=== PATIENT | male | born 1940 | race Caucasian/White ===

== ENCOUNTER 2017-02-23 10:08 | Emergency (ER) | payer MEDICARE, OTHER ==
[~2017-02-23] VITALS: Ht 193 cm; Wt 77.1 kg
--- OUTSIDE RECORDS SUMMARY | 2017-02-23 10:13 | XMS REPORT | Continuity Of Care Document ---
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2 % June 13, 2016 11:54am MEAN CORPUSCULAR VOLUME(82.0-100.0 FL) 88.2 FL June 13, 2016 11:54am MEAN CORPUSCULAR HEMOGLOBIN(26.0-34.0 PG) 29.5 PG June 13, 2016 11:54am MEAN CORPUSCULAR HGB CONC(31.5-36.5 G/DL) 33.5 G/DL June 13, 2016 11:54am RED CELL DISTRIBUTION WIDTH(11.5-14.5 %) 13.7 % June 13, 2016 11:54am 777-3: PLATELET COUNT(150-450 10E3/UL) 202 10E3/UL June 13, 2016 11:54am MEAN PLATELET VOLUME(8.2-12.4 FL) 9.8 FL June 13, 2016 11:54am NEUTROPHILS % (AUTO)(40-70 %) 59 % June 13, 2016 11:54am LYMPHOCYTES % (AUTO)(15-45 %) 30 % June 13, 2016 11:54am MONOCYTES % (AUTO)(2-10 %) 8 % June 13, 2016 11:54am EOSINOPHILS % (AUTO)(0-6 %) 2 % June 13, 2016 11:54am BASOPHILS % (AUTO)(0-1 %) 1 % June 13, 2016 11:54am IMMATURE GRANS % (AUTO)(0-0 %) 0 % June 13, 2016 11:54am NUCLEATED RBCS (AUTO)(0-0 %) 0 % June 13, 2016 11:54am NEUTROPHILS # (AUTO)(2.5-7.5 10E3/UL) 4.0 10E3/UL June 13, 2016 11:54am LYMPHOCYTES # (AUTO)(1.0-4.0 10E3/UL) 2.0 10E3/UL June 13, 2016 11:54am MONOCYTES # (AUTO)(0.2-0.8 10E3/UL) 0.5 10E3/UL June 13, 2016 11:54am EOSINOPHILS # (AUTO)(0.0-0.4 10E3/UL) 0.1 10E3/UL June 13, 2016 11:54am BASOPHILS # (AUTO)(0.0-0.2 10E3/UL) 0.1 10E3/UL June 13, 2016 11:54am IMMATURE GRANS # (AUTO)(0.0-0.0 10E3/UL) 0.0 10E3/UL June 13, 2016 11:54am DIFF TYPE AUTOMATED June 13, 2016 11:54am UA WITH SCREEN FOR CULTURE COLOR,URINE YELLOW June 13, 2016 1:28pm CLARITY,URINE CLEAR June 13, 2016 1:28pm GLUCOSE, URINE(NEGATIVE MG/DL) 500 MG/DL June 13, 2016 1:28pm URINE BILIRUBIN(NEGATIVE) NEGATIVE June 13, 2016 1:28pm KETONES,URINE(NEGATIVE MG/DL) NEGATIVE MG/DL June 13, 2016 1:28pm URINE SPECIFIC GRAVITY(1.001-1.035) 1.022 June 13, 2016 1:28pm URINE BLOOD(NEGATIVE) NEGATIVE June 13, 2016 1:28pm URINE PH(5.0-9.0) 5.5 June 13, 2016 1:28pm URINE PROTEIN(Less than 20 MG/DL) TRACE MG/DL June 13, 2016 1:28pm URINE UROBILINOGEN(0.2-1.0 MG/DL) 0.2-1.0 MG/DL June 13, 2016 1:28pm URINE NITRITE(NEGATIVE) NEGATIVE June 13, 2016 1:28pm LEUKOCYTE ESTERASE ,URINE(NEGATIVE) NEGATIVE June 13, 2016 1:28pm URINE RBCS(0-3 /HPF) 0-3 /HPF June 13, 2016 1:28pm URINE WBCS(0-3 /HPF) 0-3 /HPF June 13, 2016 1:28pm URINE EPITHELIAL CELLS(0-3 /HPF) 0-3 /HPF June 13, 2016 1:28pm URINE HYALINE CASTS(0-3 /LPF) 0-3 /LPF June 13, 2016 1:28pm URINE BACTERIA(NEGATIVE /HPF) NEGATIVE /HPF June 13, 2016 1:28pm URINE CULTURE NOT INDICATED June 13, 2016 1:28pm URINE MICROSCOPIC REQUIRED YES June 13, 2016 1:28pm COMPLETE METABOLIC PROFILE GLUCOSE(70-110 MG/DL) 240 MG/DL June 13, 2016 11:54am BLOOD UREA NITROGEN(6-20 MG/DL) 16 MG/DL June 13, 2016 11:54am CREATININE(0.50-1.20 MG/DL) 0.79 MG/DL June 13, 2016 11:54am EST GLOMERULAR FILTRATION RATE(Greater than or equal to 60) Greater than or equal to 60 Result Comments: If the patient is of -[place] descent/extraction multiply the eGFR value by 1.212 to obtain the actual eGFR. >=60 mg/dL Normal 30-59 mg/dL Moderate Kidney Disease 15-29 mg/dL Severe Kidney Disease <15 mg/dL Kidney Failure June 13, 2016 11:54am BUN CREATININE RATIO(10.0-20.0 RATIO) 20.0 RATIO June 13, 2016 11:54am SODIUM(135-145 MMOL/L) 137 MMOL/L June 13, 2016 11:54am POTASSIUM(3.6-5.0 MMOL/L) 4.2 MMOL/L June 13, 2016 11:54am CHLORIDE(101-111 MMOL/L) 103 MMOL/L June 13, 2016 11:54am CO2(21-31 MMOL/L) 25 MMOL/L June 13, 2016 11:54am ANION GAP(8-18) 13 June 13, 2016 11:54am OSMO CALCULATED(270.0-290.0) 282.9 June 13, 2016 11:54am CALCIUM(8.5-10.5 MG/DL) 9.4 MG/DL June 13, 2016 11:54am BILIRUBIN,TOTAL(0.1-1.2 MG/DL) 1.1 MG/DL June 13, 2016 11:54am ALKALINE PHOSPHATASE(42-121 IU/L) 50 IU/L June 13, 2016 11:54am ASPARTATE AMINO TRANSFERASE(10-42 IU/L) 20 IU/L June 13, 2016 11:54am ALANINE AMINOTRANSFERASE(10-60 IU/L) 19 IU/L June 13, 2016 11:54am TOTAL PROTEIN(6.4-8.2 G/DL) 6.8 G/DL June 13, 2016 11:54am ALBUMIN(3.5-5.5 G/DL) 4.3 G/DL June 13, 2016 11:54am GLOBULIN(2.4-3.6) 2.5 June 13, 2016 11:54am ALBUMIN/GLOBULIN RATIO(0.9-1.8 RATIO) 1.7 RATIO June 13, 2016 11:54am CARDIAC TROPONIN I CARDIAC TROPONIN I(0.01-0.04 NG/ML) Less than 0.01 NG/ML Result Comments: REFERENCE RANGES: NEGATIVE < 0.04 NG/ML POSSIBLE MYCARDIAL INVOLVEMENT >/=0.04 NG/ML INTERPRET TROPONIN I RESULT IN LIGHT OF THE TOTAL CLINICAL PRESENTATION INCLUDING CLINICAL HISTORY. ANY CONDITION RESULTING IN MYOCARDIAL INJURY CAN POTENTIALLY ELEVATE TROPONIN I LEVELS ABOVE EXPECTED NORMAL RANGES. NOTE NEW REFERENCE RANGE June 13, 2016 11:54am Allergies and Adverse Reactions Allergies and Adverse Reactions Patient Unit Number: [id number] Agent Type Reaction Severity Status NO KNOWN DRUG ALLERGIES Drug Allergy Unknown Unknown Active Problem List Problem List Visit/Account #[id number] (June 13, 2016 11:50am - June 13, 2016 2:35pm) Active Problems: Code/Condition Comments Documented Start Date Documented Resolved Date Code (s) G30.9 ALZHEIMER'S DISEASE, UNSPECIFIED June 13, 2016 F02.80 DEMENTIA IN OTH DISEASES CLASSD ELSWHR W/O BEHAVRL DISTURB June 13, 2016 F51.04 PSYCHOPHYSIOLOGIC INSOMNIA June 13, 2016 R42 DIZZINESS AND GIDDINESS June 13, 2016 Plan of Care Plan Of Care Visit/Account #[id number] (June 13, 2016 11:50am - June 13, 2016 2:35pm) Patient Instructions Take the meclizine as needed for dizziness. Take the Remeron as directed at night to help with sleep. Otherwise continue current medications as prescribed. Push fluids and stay hydrated. Followup with Dr. Menard later this week for recheck and further recommendations. ER as needed. Vital Signs Vital Signs Visit/Account #[id number] (June 13, 2016 11:50am - June 13, 2016 2:35pm) Sign First Result Last Result Code(s) Temperature in Fahrenheit Temperature (Fahrenheit): 97.9 [degF] On June 13, 2016 11:49am Temperature (Fahrenheit): 97.7 [degF] On June 13, 2016 2:15pm 8310-5 Body Temperature Weight in Kilograms Weight (Kilograms): 81.5000 kg On June 13, 2016 11:49am 3141-9 Weight Measured Functional Status Functional and Cognitive Status No Functional Status Data Medications Inpatient/Ordered Medications - Medications administered during hospital visit Visit/Account #[id number] (June 13, 2016 11:50am - June 13, 2016 2:35pm) Medication Route Sig/Schedule Precondition/Indication Comments/Instructions Codes IV Medication Carriers: NORMAL SALINE(SODIUM CHLORIDE) 1000 ML INJECTION Dose: 1000 ML INTRAVEN .Q1H (Rate: 1000 MLS/HR Duration: 1 HR) Carriers: 1000 ML Sodium Chloride 9 MG/ML Injection (RxNorm): 4857810 NORMAL SALINE (SODIUM CHLORIDE) [facility]: [id number] ZOFRAN INJ(ONDANSETRON HCL) 4 MG/2 ML INJECTION Dose: 2 ML INTRAVEN NOW Rx Order Comments: Order placed as verified: Dose Warnings differ from orderly 2 ML Ondansetron 2 MG/ML Injection (RxNorm): 7924907 ZOFRAN INJ (ONDANSETRON HCL) NDC: [id number] Discharge Medications - Medications that patient should continue to take. Review with physician Visit/Account #[id number] (June 13, 2016 11:50am - June 13, 2016 2:35pm) Medication Route Sig/Schedule Precondition/Indication Comments/Instructions Codes Antivert(MECLIZINE HCL) 25 MG TAB Dose: 1 TAB ORAL EVERY 6 HOURS DIZZINESS Meclizine Hydrochloride 25 MG Oral Tablet (RxNorm): 497581 Antivert (MECLIZINE HCL) NDC: [id number] REMERON(MIRTAZAPINE) 15 MG TAB Dose: 15 MG ORAL AT BEDTIME Mirtazapine 15 MG Oral Tablet [Remeron] (RxNorm): 627124 REMERON (MIRTAZAPINE) NDC: 66360054469 History Of Encounters Encounters Visit/Account #[id number] (June 13, 2016 11:50am - June 13, 2016 2:35pm) Account Status Physican Of Record Reason For Visit Visit Diagnosis Start Date/Time Stop Date/Time ER ZHEN VERDUGO MD FALL R53.1: WEAKNESS ICD10 June 13, 2016 11:50am June 13, 2016 2:35pm History of Procedures Procedure List No procedures recorded. Discharge Instructions Discharge Instructions Visit/Account #[id number] (June 13, 2016 11:50am - June 13, 2016 2:35pm) DISCHARGE INSTRUCTIONS Physician Documentation Social History Social History No Social History Data. Immunizations Immunizations Patient Unit Number: [id number] Immunizations No immunizations recorded.
--- OUTSIDE RECORDS SUMMARY | 2017-02-23 10:14 | XMS REPORT | Continuity of Care Document ---
Author Author [facility] Organization [facility] Address Unknown Phone Unavailable Allergies Active Description Code Type Severity Reaction Onset Reported/Identified Relationship to Patient Clinical Status Yes No Known Allergies N/A N/A Medications Medication Packaging Start Date Stop Date Route Dosage Sig GLUCOPHAGE TAB 1000MG 06/10/2015 07/10/2015 PO 1000.000 JSCHOEND NAMENDA 10 MG TABS 06/10/2015 07/10/2015 PO 10.000 JSCHOEND DONEPEZIL HCL 10 MG TABS 201507/09/2015 PO 10.000 JSCHOEND LIPITOR 20 MG TABS 06/10/2015 07/09/2015 PO 20.000 JSCHOEND VITAMIN E 400 UNIT CAPS 201507/10/2015 PO 400.000 JSCHOEND ZOLOFT TAB 100MG 06/11/2015 07/10/2015 PO 150.000 LWRIGHT PATIENT'S OWN MED TABS 201507/10/2015 PO 1.000 JSCHOEND MULTIVITAMIN TAB 06/11/2015 07/10/2015 PO 1.000 JSCHOEND OMEGA-3 CAP 1000MG 06/11/2015 07/10/2015 PO 1000.000 JSCHOEND VIT B COMPLEX 06/11/2015 07/10/2015 PO 1.000 JSCHOEND BLOOD SUGAR TEST STRIP USE 1 03/201507/14/2015 TOP 1.000 LWRIGHT Problems Date Dx Coded Attending Type Code Diagnosis Diagnosed By 10/22/2014 TY SUMMERS 298.9 Unspecified psychosis 06/21/2015 NONI BHAT E11.9 TYPE 2 DIABETES MELLITUS WITHOUT COMPLICATIONS 06/21/2015 NONI BHAT E78.5 HYPERLIPIDEMIA, UNSPECIFIED 06/21/2015 NONI BHAT F03.91 UNSPECIFIED DEMENTIA WITH BEHAVIORAL DISTURBANCE 06/21/2015 NONI BHAT F31.64 BIPOLAR DISORDER, CURRENT EPISODE MIXED, SEVERE, WITH PSYCHOTIC FEATURES 06/21/2015 NONI BHAT Z11.2 ENCOUNTER FOR SCREENING FOR OTHER BACTERIAL DISEASES Procedures Code Description Performed By Performed On 12LEKG 12 LEAD EKG 10/22/2014 ALC ALCOHOL 10/22/2014 CBC CBC WITH DIFF 10/22/2014 CMETPP COMPREHENSIVE METABOLIC PANEL 10/22/[address] HEAD WO CONTRAST 10/22/2014 DGABU DRUG SCREEN URINE 10/22/2014 ISTROP TROPONIN I POCT 10/22/2014 UA URINALYSIS AUTOMATED W MICROSCOPY 10/22/2014 Results Test Result Range CBC WITH DIFF - 10/22/14 14:09 WBC 10.2 10*3/uL 4.3-10.8 RBC 5.15 10*6/uL 4.70-6.10 HGB 15.0 g/dL 14.0-18.0 HCT 44.5 % 42-52 MCV 87 fL 81-99 MCH 29 pg 26-34 MCHC 34 g/dL 31-37 PLATELET COUNT 213 10*3/uL 150-400 RDWCV 13.2 % 11.5-14.5 DIFF TYPE AUTOMATED DIFF NEUTROPHIL % 83 % 36-66 LYMPHOCYTE % 11 % 24-44 MONOCYTE % 5 % 1-10 EOSINOPHIL % 0 % 0-6 BASOPHIL % 0 % 0-2 ABS. NEUTROPHILS 8.4 10*3/uL 1.55-7.13 ABS. LYMPHOCYTES 1.2 10*3/uL 1.0-4.8 ABS. MONOCYTES 0.5 10*3/uL 0.4-1.08 ABS. EOSINOPHILS 0.0 10*3/uL 0.0-0.65 ABS. BASOPHILS 0.0 10*3/uL 0.0-0.11 ABSOLUTE NUCLEATED RBC 0.00 10*3/uL PERCENT NUCLEATED RBC 0 COMPREHENSIVE METABOLIC PANEL - 10/22/14 14:09 POTASSIUM 4.2 mmol/L 3.5-5.1 CALCIUM 9.8 mg/dL 8.6-10.6 GLUCOSE 295 mg/dL 80-115 BUN 16 mg/dL 8-22 CREATININE 1.0 mg/dL 0.7-1.3 SODIUM 138 mmol/L 136-145 CHLORIDE 107 mmol/L 98-110 CO2 22 mmol/L 22-29 GFR ESTIMATED NOT AFR/AM >60 GFR ESTIMATED IF AFR/AM >60 ALT-SGPT 21 U/L 0-55 AST-SGOT 13 U/L 5-34 TOTAL PROTEIN,SERUM 6.2 g/dL 6-8.3 ALBUMIN 4.2 g/dL 3.6-5.3 ALKALINE PHOSPHATASE 63 U/L 40-150 TOTAL BILIRUBIN 0.7 mg/dL 0.2-1.2 ANION GAP 9 5-15 GLOBULIN, CALCULATED 2.0 g/dL A/G RATIO 2.1 ratio 1-1.8 ALCOHOL - 10/22/14 14:09 ALCOHOL NEGATIVE mg/dL NEGATIVE TROPONIN I POCT - 10/22/14 14:14 CARDIAC TROPONIN I POCT <0.02 ng/mL 0.00-0.10 URINALYSIS AUTOMATED W MICROSCOPY - 10/22/14 15:30 SPECIMEN VOIDED URINE COLOR YELLOW APPEARANCE CLEAR CLEAR SPECIFIC GRAVITY 1.023 1.005-1.030 PH, URINE 5.0 5.0-9.0 PROTEIN NEGATIVE mg/dL NEGATIVE GLUC LARGE mg/dL NEGATIVE KETONES NEGATIVE mg/dL NEGATIVE BILIRUBIN NEGATIVE NEGATIVE BLOOD TRACE NEGATIVE NITRITE NEGATIVE NEGATIVE UROBILINOGEN NORMAL mg/dL NORMAL LEUKOCYTE ESTERASE NEGATIVE NEGATIVE WBC'S 1 [HPF] 0-4 RBC'S <1 [HPF] 0-1 MUCUS RARE [LPF] NEGATIVE DRUG SCREEN URINE - 10/22/14 15:30 BARBITURATE, URINE NEGATIVE BENZODIAZEPINE, URINE NEGATIVE AMPHETAMINE, URINE NEGATIVE THC, URINE NEGATIVE COCAINE, URINE NEGATIVE OPIATES, URINE NEGATIVE PHENCYCLIDINE, URINE SCREEN NEGATIVE ALCOHOL, URINE NEGATIVE CBC/ AUTO DIFF - 06/11/15 06:40 WHITE BLOOD COUNT 6.78 10 4.60-10.20 HEMATOCRIT 42.5 % 42.0-52.0 HEMOGLOBIN 14.6 g/dl 14.0-18.0 PLATELET COUNT 187 10 142-424 RBC 4.95 10 4.70-6.10 MCV 85.9 fl 80.0-100.0 MCH 29.5 pg 26.0-34.0 MCHC 34.4 g/dl 29.0-37.0 RDW 13.6 % 11.5-14.5 MPV 10.10 fl GRAN% 62.4 % 37.0-80.0 LYMPH% 28.30 % 10.00-50.00 MONO% 7.80 % 0.00-12.00 EOS% 1.20 % 0.00-7.00 BASO% 0.30 % 0.00-2.50 GRAN# 4.23 10 2.00-6.90 LYMPH# 1.92 10 0.60-3.40 MONO# 0.53 10 0.00-0.90 EOS# 0.08 10 0.00-0.50 BASO# 0.02 10 0.00-0.20 COMPREHENSIVE METABOL - 06/11/15 06:40 CREATININE 0.8 mg/dl 0.6-1.3 SODIUM 139 mmol/L 136-145 TOTAL BILIRUBIN 0.6 mg/dl 0.0-1.0 TOTAL PROTEIN 6.5 g/dl 6.4-8.2 ALBUMIN 3.6 g/dl 3.4-5.0 ALK. PHOSPHATASE 48 U/L 50-136 BUN 13 mg/dl 7-18 CALCIUM 8.8 mg/dl 8.5-10.1 CHLORIDE 105 mmol/L 98-107 CO2 26.4 mmol/L 21.0-32.0 GLUCOSE 177 mg/dl 70-110 POTASSIUM 4.3 mmol/L 3.5-5.1 AST 7 U/L 15-37 ALT 18 U/L 12-78 AGAP 11.9 6.0-16.0 BN/CR 15.5 6.0-20.0 HTSH - 06/11/15 06:40 HTSH 1.02 uiU/ml 0.34-4.82 URINALYSIS - 06/11/15 14:30 SPECIFIC GRAVITY <=1.005 COLOR YELLOW YELLOW CLARITY CLEAR CLEAR GLUCOSE NEGATIVE mg/dl NEGATIVE BILI NEGATIVE NEGATIVE KETONE NEGATIVE NEGATIVE PH 5.0 5.0-7.5 PROTEIN NEGATIVE NEGATIVE UROBILI 0.2 mg/dl 0.2-1.0 NITRITE NEGATIVE NEGATIVE BLOOD NEGATIVE NEGATIVE LEUKOCYT NEGATIVE NEGATIVE WBC 0-2 NONE SEEN RBC NONE NONE SEEN BACTERIA NEGATIVE /LPF NONE SEEN SQ EPI 0-2 /LPF NONE SEEN Encounters ACCT No. Visit Date/Time Discharge Status Pt. Type Provider Facility Loc./Unit Complaint [id number] 10/22/2014 13:50:55 10/22/2014 19:55:00 DIS Emergency [facility] Rick NICHOLAS [id number] 06/10/2015 10:00:00 06/21/2015 18:17:00 DIS Inpatient [facility] FARIHA [id number] 07/21/2016 15:31:08 07/21/2016 23:59:59 CLS Outpatient [place], Bruno [id number] 07/07/2016 16:10:43 07/07/2016 23:59:59 CLS Outpatient Sedgwick, Bruno [id number] 06/30/2016 10:31:43 06/30/2016 23:59:59 CLS Outpatient Sedgwick, Bruno [id number] 06/15/2016 09:19:00 06/15/2016 23:59:59 CLS Outpatient Sedgwick, Bruno [id number] 04/26/2016 10:54:47 04/26/2016 23:59:59 CLS Outpatient Sedgwick, Bruno [id number] 03/13/2016 09:39:05 03/13/2016 23:59:59 CLS Outpatient Sedgwick, Bruno [id number] 01/20/2016 14:11:04 01/20/2016 23:59:59 CLS Outpatient [place]gwick, Bruno [id number] 12/10/2015 16:09:36 12/10/2015 23:59:59 CLS Outpatient Sedgwick, Bruno [id number] 12/07/2015 17:50:51 12/07/2015 23:59:59 CLS Outpatient Sedgwick, Bruno [id number] 10/05/2015 18:22:31 10/05/2015 23:59:59 CLS Outpatient Sedgwick, Bruno [id number] 08/09/2015 16:00:21 08/09/2015 23:59:59 CLS Outpatient Sedgwick, Bruno [id number] 05/07/2015 15:47:18 05/07/2015 23:59:59 CLS Outpatient Sedgwick, Bruno [id number] 05/04/2015 15:03:14 05/04/2015 23:59:59 CLS Outpatient Sedgwick, Bruno [id number] 04/28/2015 11:19:55 04/28/2015 23:59:59 CLS Outpatient Sedgwick, Bruno [id number] 04/14/2015 16:24:20 04/14/2015 23:59:59 CLS Outpatient Sedgwick, Bruno [id number] 03/19/2015 12:46:10 03/19/2015 23:59:59 CLS Outpatient Sedgwick, Bruno [id number] 02/04/2015 11:12:31 02/04/2015 23:59:59 CLS Outpatient Bruno Menard [id number] 02/02/2015 10:37:56 02/02/2015 23:59:59 CLS Outpatient Bruno Menard [id number] 12/18/2014 15:59:12 12/18/2014 23:59:59 CLS Outpatient Bruno Menard [id number] 11/02/2014 16:30:10 11/02/2014 23:59:59 CLS Outpatient Bruno Menard [id number] 09/28/2014 16:22:26 09/28/2014 23:59:59 CLS Outpatient Hillary Fair [id number] 09/02/2014 10:26:32 09/02/2014 23:59:59 CLS Outpatient Shelly Anglin [id number] 08/27/2014 10:35:44 08/27/2014 23:59:59 CLS Outpatient Marvel Fairkristie Renee [id number] 08/10/2014 16:23:43 08/10/2014 23:59:59 CLS Outpatient Carlos Flowers [id number] 08/10/2014 14:24:59 08/10/2014 23:59:59 CLS Outpatient Hillary Fair [id number] 02/23/2014 14:14:31 02/23/2014 23:59:59 CLS Outpatient TosinkentonKlaus hoyos [id number] 02/21/2014 10:32:33 02/21/2014 23:59:59 CLS Outpatient TosinkentonKlaus hoyos [id number] 12/15/2013 09:59:19 12/15/2013 23:59:59 CLS Outpatient Klaus Byrd [id number] 11/24/2013 14:16:01 11/24/2013 23:59:59 CLS Outpatient Klaus Byrd [id number] 11/20/2013 15:30:14 11/20/2013 23:59:59 CLS Outpatient Astrid Mcnally [id number] 11/17/2013 14:53:49 11/17/2013 23:59:59 CLS Outpatient Carlos Flowers [id number] 11/14/2013 09:37:06 11/14/2013 23:59:59 CLS Outpatient Klaus Byrd [id number] 11/05/2013 09:24:15 11/05/2013 23:59:59 CLS Outpatient Klaus Byrd [id number] 05/12/2013 16:08:43 05/12/2013 23:59:59 CLS Outpatient Klaus Byrd [id number] 05/05/2013 10:14:01 05/05/2013 23:59:59 CLS Outpatient Klaus Byrd [id number] 12/05/2012 16:15:32 12/05/2012 23:59:59 CLS Outpatient Klaus Byrd [id number] 11/26/2012 11:40:58 11/26/2012 23:59:59 [facility] Outpatient Klaus Byrd [id number] 11/15/2012 09:31:09 11/15/2012 23:59:59 [facility] Outpatient Klaus Byrd
[2017-02-23 11:24] LABS: BASOPHILS % (AUTO) 0 % (0-10); EOSINOPHILS # (AUTO) 0.1 10^3/uL (0.0-0.3); EOSINOPHILS % (AUTO) 0 % (0-10); HEMATOCRIT 37 % (40-54); HEMOGLOBIN 12.3 G/DL (13.3-17.7); LYMPHOCYTES % (AUTO) 6 % (12-44); MEAN CORPUSCULAR HEMOGLOBIN 30 PG (25-34); MEAN CORPUSCULAR HGB CONC 33 G/DL (32-36); MEAN CORPUSCULAR VOLUME 90 FL (80-99); MEAN PLATELET VOLUME 9.9 FL (7.4-10.4); MONOCYTES # (AUTO) 0.6 X 10^3 (0.0-1.0); MONOCYTES % (AUTO) 4 % (0-12); NEUTROPHILS # (AUTO) 14.8 X 10^3 (1.8-7.8); NEUTROPHILS % (AUTO) 90 % (42-75); PLATELET COUNT 331 10^3/uL (130-400); RED BLOOD COUNT 4.08 10^6/uL (4.35-5.85); RED CELL DISTRIBUTION WIDTH 13.3 % (10.0-14.5); WHITE BLOOD COUNT 16.5 10^3/uL (4.3-11.0)
--- NOTE | 2017-02-23 11:25 | ED General ---
General Chief Complaint: Altered Mental Status Stated Complaint: UTI Nursing Triage Note: [facility] states that the has had changes in mental status. They believe he has a uti. Pt brought by ems, patient not responsive except deep pain Nursing Sepsis Screen: No Definite Risk Source of Information: EMS, Halfway Records Exam Limitations: No Limitations (PAPA HA MD) History of Present Illness Time Seen by Provider: 11:22 Initial Comments The patient is a 76-year-old white male retirement resident. He was apparently sent here for a decline in alertness. He has a document which accompanies him which he executed in 2016 which precludes any life-prolonging procedures including surgery dialysis CPR antibiotics mechanical ventilation and tube feeding. It is not clear what else is available to him. Timing/Duration: 12 Hours (PAPA HA MD) Allergies and Home Medications Allergies Coded Allergies: No Known Drug Allergies (Unverified , 02/23/17) Constitutional: see HPI, other (PAPA HA MD) Past Jxcqeii-Qhgngu-Vpxqkb Hx Patient Social History Alcohol Use: Denies Use Recreational Drug Use: No 2nd Hand Smoke Exposure: No Recent Foreign Travel: No Contact w/Someone Who Travel: No Recent Infectious Disease Expo: No Physical Abuse: No Sexual Abuse: No Mistreated: No Fear: No (PAPA HA MD) Psychosocial Suicide Risk Score: 0 (PAPA HA MD) Physical Exam Vital Signs Vital Sign - Last 12Hours 02/23/17 10:17 Temp 97.7 Pulse 99 Resp 18 B/P (MAP) 110/73 (85) Pulse Ox 99 O2 Delivery Nasal Cannula O2 Flow Rate 4.00 (MEGHAN RUTH MD) Vital Signs Capillary Refill : Less Than 3 Seconds (PAPA HA MD) General Appearance: Other (appears sleeplike and serene) HEENT: Normal ENT Inspection Neck: Full Range of Motion Respiratory: Chest Non Tender, Lungs Clear, Normal Breath Sounds, No Accessory Muscle Use, No Respiratory Distress Cardiovascular: Regular Rate, Rhythm, No Edema, No Gallop, No JVD, No Murmur, Normal Peripheral Pulses Gastrointestinal: Normal Bowel Sounds, Other (generally very thin with a scaphoid abdomen.) Back: Normal Inspection Extremity: Normal Capillary Refill, Normal Inspection, Normal Range of Motion, Non Tender, No Calf Tenderness, No Pedal Edema (PAPA HA MD) General Appearance: Chronically ill, Thin, Other (appears sleeplike and serene) Neck: Non Tender Neurologic/Psychiatric: Other (unresponsive mostly but arouses with physical stimulus. Does not appear uncomfortable at this time.) Skin: Normal Color, Warm/Dry (MEGHAN RUTH MD) Focused Exam Evaluation Lactate Level Laboratory Tests 02/23/17 10:17: Lactic Acid Level 1.45 (MEGHAN RUTH MD) Lactic Acid Level Laboratory Tests Test 02/23/17 10:17 Lactic Acid Level 1.45 MMOL/L (0.50-2.00) (MEGHAN RUTH MD) Progress/Results/Core Measures Suspected Sepsis Recent Fever Within 48 Hours: No Infection Criteria Present: Suspected New Infection New/Unexplained Altered Menta: Yes Sepsis Screen: No Definite Risk Sepsis Diagnosis: SIRS Temperature:97.7 Pulse: 99 Respiratory Rate: 18 Laboratory Tests 02/23/17 10:17: Blood Pressure 110 /73 Mean: 85 Laboratory Tests 02/23/17 10:17: (PAPA HA MD) Results/Orders Lab Results Laboratory Tests Test 02/23/17 10:17 02/23/17 11:20 Range/Units White Blood Count 16.5 H 4.3-11.0 10^3/uL Red Blood Count 4.08 L 4.35-5.85 10^6/uL Hemoglobin 12.3 L 13.3-17.7 G/DL Hematocrit 37 L 40-54 % Mean Corpuscular Volume 90 80-99 FL Mean Corpuscular Hemoglobin 30 25-34 PG Mean Corpuscular Hemoglobin Concent 33 32-36 G/DL Red Cell Distribution Width 13.3 10.0-14.5 % Platelet Count 331 130-400 10^3/uL Mean Platelet Volume 9.9 7.4-10.4 FL Neutrophils (%) (Auto) 90 H 42-75 % Lymphocytes (%) (Auto) 6 L 12-44 % Monocytes (%) (Auto) 4 0-12 % Eosinophils (%) (Auto) 0 0-10 % Basophils (%) (Auto) 0 0-10 % Neutrophils # (Auto) 14.8 H 1.8-7.8 X 10^3 Lymphocytes # (Auto) 1.0 1.0-4.0 X 10^3 Monocytes # (Auto) 0.6 0.0-1.0 X 10^3 Eosinophils # (Auto) 0.1 0.0-0.3 10^3/uL Basophils # (Auto) 0.0 0.0-0.1 10^3/uL Neutrophils % (Manual) 87 % Lymphocytes % (Manual) 5 % Monocytes % (Manual) 4 % Eosinophils % (Manual) 1 % Band Neutrophils 3 % Blood Morphology Comment NORMAL Sodium Level 149 H 135-145 MMOL/L Potassium Level 4.3 3.6-5.0 MMOL/L Chloride Level 112 H 98-107 MMOL/L Carbon Dioxide Level 26 21-32 MMOL/L Anion Gap 11 5-14 MMOL/L Blood Urea Nitrogen 40 H 7-18 MG/DL Creatinine 0.74 0.60-1.30 MG/DL Estimat Glomerular Filtration Rate > 60 BUN/Creatinine Ratio 54 Glucose Level 175 H 70-105 MG/DL Lactic Acid Level 1.45 0.50-2.00 MMOL/L Calcium Level 9.3 8.5-10.1 MG/DL Total Bilirubin 0.4 0.1-1.0 MG/DL Aspartate Amino Transf (AST/SGOT) 14 5-34 U/L Alanine Aminotransferase (ALT/SGPT) 14 0-55 U/L Alkaline Phosphatase 62 40-136 U/L Total Protein 5.8 L 6.4-8.2 GM/DL Albumin 2.8 L 3.2-4.5 GM/DL Urine Color RED H Urine Clarity BLOODY H Urine pH 5 5-9 Urine Specific [place] 1.020 1.016-1.022 Urine Protein 3+ H NEGATIVE Urine Glucose (UA) NEGATIVE NEGATIVE Urine Ketones 1+ H NEGATIVE Urine Nitrite NEGATIVE NEGATIVE Urine Bilirubin NEGATIVE NEGATIVE Urine Urobilinogen NORMAL NORMAL MG/DL Urine Leukocyte Esterase 2+ H NEGATIVE Urine RBC (Auto) 5+ H NEGATIVE Urine RBC TNTC H /HPF Urine WBC 5-10 H /HPF Urine Squamous Epithelial Cells RARE /HPF Urine Crystals PRESENT H /LPF Urine Amorphous Sediment FEW MONICA URATES H /LPF Urine Bacteria FEW H /HPF Urine Casts NONE /LPF Urine Mucus NEGATIVE /LPF Urine Culture Indicated YES (MEGHAN RUTH MD) My Orders Orders - MEGHAN RUTH MD Chest 1 View, Ap/Pa Only (02/23/17 12:02) Lactic Acid Analyzer (02/23/17 12:02) Blood Culture (02/23/17 12:02) (MEGHAN RUTH MD) Vital Signs/I&O Vital Sign - Last 12Hours 02/23/17 10:17 Temp 97.7 Pulse 99 Resp 18 B/P (MAP) 110/73 (85) Pulse Ox 99 O2 Delivery Nasal Cannula O2 Flow Rate 4.00 (MEGHAN RUTH MD) Vital Signs/I&O Capillary Refill : Less Than 3 Seconds (PAPA HA MD) Blood Pressure Mean: 85 Progress Note : Progress Note I assumed care of the patient at [address] HA. Labs pending. I did add chest x-ray and other labs. Reevaluation completed by me. Patient is arousable but somnolent. Fluids are running. Monitor patient. 1230: I did discuss the case with Dr. Jaime. Patient has a clear living will and explicit instructions that would indicate he does not want lifesaving procedures in conditions including advanced Alzheimer's which he apparently has. Dr. Jaime we'll try to get ahold of the retirement and his to evaluate whether the family is in agreement. 1242: [facility] was called and I did offer my opinion to that nurse as well as opinion of Dr. HA at both agree that he is in his end-of-life and in conditions discussed and his living well. They will talk with the and call back. 1318: Family would like the patient sent back to the retirement and they will initiate hospice care per his wishes. I do believe this is in the patient's best interest and comfort. Discharge back to retirement. Patient will have to go by EMS this is unable to sit upright without significant discomfort. (MEGHAN RUTH MD) Departure Impression Impression: Primary Impression: Dehydration Additional Impressions: Dementia Qualified Codes: G30.1 - Alzheimer's disease with late onset; F02.80 - Dementia in other diseases classified elsewhere without behavioral disturbance Hypernatremia Delirium Disposition: 01 HOME, SELF-CARE Condition: Stable/Unchanged Departure-Patient Inst. Decision time for Depature: 13:22 (MEGHAN RUTH MD) Referrals: CHIQUI JAIME DO (PCP/Family) Primary Care Physician Patient Instructions: Alzheimer Disease (DC), Delirium (Confusion) (DC) Add. Discharge Instructions: All discharge instructions reviewed with patient and/or family. Voiced understanding. Discharge back to retirement for end-of-life care. Hospice consult. PAPA HA MD Feb 23, 2017 11:25 MEGHAN RUTH MD Feb 23, 2017 12:45
[2017-02-23 11:30] LABS: BILIRUBIN,URINE NEGATIVE (NEGATIVE); CLARITY,URINE BLOODY; COLOR,URINE RED; GLUCOSE, URINE (UA) NEGATIVE (NEGATIVE); KETONES,URINE 1+ (NEGATIVE); LEUKOCYTE ESTERASE ,URINE 2+ (NEGATIVE); NITRITE,URINE NEGATIVE (NEGATIVE); PH,URINE 5 (5-9); PROTEIN,URINE 3+ (NEGATIVE); UROBILINOGEN,URINE NORMAL (NORMAL)
[2017-02-23] MEDS ORDERED: NS IV 1000 ML 1,000 ML IV SCH (11:45)
[2017-02-23 11:55] LABS: RBC,URINE TNTC /HPF
[2017-02-23 11:56] LABS: AMORPHOUS SEDIMENT,UR FEW AMOR URATES /LPF; BACTERIA,URINE FEW /HPF; SQUAMOUS EPITHELIAL CELL,UR RARE /HPF
[2017-02-23 12:04] LABS: ALANINE AMINOTRANSFERASE 14 U/L (0-55); ALBUMIN 2.8 GM/DL (3.2-4.5); ALKALINE PHOSPHATASE 62 U/L (40-136); BILIRUBIN,TOTAL 0.4 MG/DL (0.1-1.0); BUN/CREATININE RATIO 54; CALCIUM 9.3 MG/DL (8.5-10.1); CARBON DIOXIDE 26 MMOL/L (21-32); CHLORIDE 112 MMOL/L (98-107); CREATININE SERUM 0.74 MG/DL (0.60-1.30); GFR ESTIMATED > 60; GLUCOSE 175 MG/DL (70-105); POTASSIUM 4.3 MMOL/L (3.6-5.0); SODIUM 149 MMOL/L (135-145); TOTAL PROTEIN 5.8 GM/DL (6.4-8.2)
[2017-02-23 12:10] LABS: BAND NEUTROPHILS 3 %; EOSINOPHILS % (MANUAL) 1 %; LYMPHOCYTES % (MANUAL) 5 %; MONOCYTES % (MANUAL) 4 %; NEUTROPHILS % (MANUAL) 87 %
[2017-02-23 12:11] LABS: RBC MORPH NORMAL
--- NOTE | 2017-02-23 12:32 | Diagnostic Imaging Report ---
EXAM: Portable erect AP chest at 12:10 p.m. INDICATION: Unresponsive. FINDINGS: There are no prior studies available for comparison. This exam is less than optimal as the patient is rotated. The heart size is within normal limits. There are coarse perihilar markings bilaterally. I suspect these findings are more likely due to chronic pulmonary disease than to a mild pulmonary edema.. If there are previous studies available for comparison, they would be helpful. There is no evidence for overt failure, pneumonia or for a pleural effusion. The mediastinum is not widened. The osseous structures are intact. IMPRESSION: 1. The coarse perihilar markings bilaterally are more likely to be chronic in nature than due to an acute abnormality. If previous studies are available, they would be helpful for comparison. 2. There is no acute cardiopulmonary abnormality noted otherwise. Dictated by: Dictated on workstation # [id number]
[2017-02-23 13:46] VITALS: BP 115/61
== END 2017-02-23 13:46 | disposition home or self-care (01) ==
LOC: ER 10:10
DX: E86.0 Dehydration (principal); F03.90 Unspecified dementia, unspecified severity, without behavioral disturbance, psychotic disturbance, mood disturbance, and anxiety; E87.0 Hyperosmolality and hypernatremia; R41.0 Disorientation, unspecified; Z99.2 Dependence on renal dialysis
CPT/HCPCS: 36415; 71045; 80053; 81000; 83605; 85007; 85027; 87040; 87088

== ENCOUNTER 2017-02-23 16:54 | Emergency (ER) | payer MEDICARE, OTHER ==
[~2017-02-23] VITALS: Ht 193 cm; Wt 77.1 kg
--- OUTSIDE RECORDS SUMMARY | 2017-02-23 17:01 | XMS REPORT | Continuity of Care Document ---
Author Author [facility] Organization [facility] Address Unknown Phone Unavailable Allergies Active Description [...] Status Pt. Type Provider Facility Loc./Unit Complaint [id number] 10/22/2014 13:50:55 10/22/2014 19:55:00 DIS Emergency [facility] Rick NICHOLAS [id number] 06/10/2015 10:00:00 06/21/2015 18:17:00 DIS Inpatient [facility] FARIHA [id number] 07/21/2016 15:31:08 07/21/2016 23:59:59 CLS Out[place], Bruno [id number] 07/07/2016 16:10:43 07/07/2016 23:59:59 CLS Out[place], Bruno [id number] 06/30/2016 10:31:43 06/30/2016 23:59:59 CLS Outpatient [place], Bruno [id number] 06/15/2016 09:19:00 06/15/2016 23:59:59 CLS Outpatient [place], Bruno [id number] 04/26/2016 10:54:47 04/26/2016 23:59:59 CLS Outpatient [place], Bruno [id number] 03/13/2016 09:39:05 03/13/2016 23:59:59 CLS Outpatient [place], Bruno [id number] 01/20/2016 14:11:04 01/20/2016 23:59:59 CLS Outpatient [place], Bruno [id number] 12/10/2015 16:09:36 12/10/2015 23:59:59 CLS Outpatient [place], Bruno [id number] 12/07/2015 17:50:51 12/07/2015 23:59:59 CLS Outpatient [place], Bruno [id number] 10/05/2015 18:22:31 10/05/2015 23:59:59 CLS Outpatient [place], Bruno [id number] 08/09/2015 16:00:21 08/09/2015 23:59:59 CLS Outpatient [place], Bruno [id number] 05/07/2015 15:47:18 05/07/2015 23:59:59 CLS Outpatient [place], Bruno [id number] 05/04/2015 15:03:14 05/04/2015 23:59:59 CLS Outpatient [place], Bruno [id number] 04/28/2015 11:19:55 04/28/2015 23:59:59 CLS Outpatient [place], Bruno [id number] 04/14/2015 16:24:20 04/14/2015 23:59:59 CLS Outpatient [place], Bruno [id number] 03/19/2015 12:46:10 03/19/2015 23:59:59 CLS Outpatient [place], Bruno [id number] 02/04/2015 11:12:31 02/04/2015 23:59:59 CLS Outpatient [place] Menard [id number] 02/02/2015 10:37:56 02/02/2015 23:59:59 CLS Outpatient [place] Menard [id number] 12/18/2014 15:59:12 12/18/2014 23:59:59 CLS Outpatient [place] Menard [id number] 11/02/2014 16:30:10 11/02/2014 23:59:59 CLS Outpatient [place] Menard [id number] 09/28/2014 16:22:26 09/28/2014 23:59:59 CLS Outpatient Hillary Fair [id number] 09/02/2014 10:26:32 09/02/2014 23:59:59 CLS Outpatient Shelly Anglin [id number] 08/27/2014 10:35:44 08/27/2014 23:59:59 CLS Outpatient Marvel Fairkristie Renee [id number] 08/10/2014 16:23:43 08/10/2014 23:59:59 CLS Outpatient Carlos Flowers [id number] 08/10/2014 14:24:59 08/10/2014 23:59:59 CLS Outpatient Hillary Fair [id number] 02/23/2014 14:14:31 02/23/2014 23:59:59 CLS Outpatient Tosink[place]Klaus hoyos [id number] 02/21/2014 10:32:33 02/21/2014 23:59:59 CLS Outpatient TosinkentonKlaus hoyos [id number] 12/15/2013 09:59:19 12/15/2013 23:59:59 CLS Outpatient Klaus Byrd [id number] 11/24/2013 14:16:01 11/24/2013 23:59:59 CLS Outpatient Klaus Byrd [id number] 11/20/2013 15:30:14 11/20/2013 23:59:59 CLS Outpatient Astrid Mcnally [id number] 11/17/2013 14:53:49 11/17/2013 23:59:59 CLS Outpatient Carlos Flowers [id number] 11/14/2013 09:37:06 11/14/2013 23:59:59 CLS Outpatient Klaus Byrd [id number] 11/05/2013 09:24:15 11/05/2013 23:59:59 CLS Outpatient Klaus Byrd [id number] 05/12/2013 16:08:43 05/12/2013 23:59:59 CLS Outpatient Klaus Byrd [id number] 05/05/2013 10:14:01 05/05/2013 23:59:59 CLS Outpatient Klaus Byrd [id number] 12/05/2012 16:15:32 12/05/2012 23:59:59 CLS Outpatient Klaus Bryd [id number] 11/26/2012 11:40:58 11/26/2012 23:59:59 [facility] Outpatient Klaus Byrd [id number] 11/15/2012 09:31:09 11/15/2012 23:59:59 [facility] Outpatient Klaus Byrd
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
[2017-02-23 17:09] VITALS: BP 115/83
== END 2017-02-23 17:09 | disposition home or self-care (01) ==
LOC: EDUNIT# 16:54 → ER 16:56
DX: S00.83XA Contusion of other part of head, initial encounter (principal); S09.90XA Unspecified injury of head, initial encounter; K21.9 Gastro-esophageal reflux disease without esophagitis; F03.90 Unspecified dementia, unspecified severity, without behavioral disturbance, psychotic disturbance, mood disturbance, and anxiety; W06.XXXA Fall from bed, initial encounter
CPT/HCPCS: 99284